=== PATIENT | female | born 1965 | race Caucasian/White ===

== ENCOUNTER → 2017-04-12 08:42 | Outpatient (CLI) | payer BC, SELFPAY ==
--- NOTE | 2017-04-12 09:00 | MM_ITS ---
MM Dig screening mamm BI w/CAD CAD Screening COMPARISON: Digital mammograms and additional views of both breast 03/07/2016 INDICATION: There is no personal or family history of breast cancer. There has been previous biopsy left breast. TECHNIQUE: Standard CC and MLO images were obtained. R2 CAD reviewed. FINDINGS: Scattered fibroglandular densities are seen in both breast on a background of fatty breast parenchyma. There is very minimal post biopsy scarring upper outer quadrant left breast. There is a mole marker right breast. There is no suspicious lesion and there are no suspicious microcalcifications. IMPRESSION: Fibrofatty parenchyma with no suspicious lesion seen BI-RADS Category: 2 Benign Finding(s) RECOMMENDED FOLLOW-UP: 1YR - 1 YEAR FOLLOW-UP (A letter has been sent to the patient regarding results of the study.)
== END ==
PROVIDERS: PCP Nurse Practitioner Family; Visit Provider Nurse Practitioner Family
DX: Z12.39 Encounter for other screening for malignant neoplasm of breast (principal)
CPT/HCPCS: 77067

== ENCOUNTER 2017-04-12 09:25 | Emergency (ER) | payer BC, SELFPAY ==
[2017-04-12 09:40] VITALS: BP 146/90; PULSE 66; RESP 16; TEMP 36.1; O2SAT 97; BMI 36.9
--- NOTE | 2017-04-12 09:42 | XR_ITS ---
XR shoulder RT min 2V HISTORY: Shoulder pain ITS.REASON: pain ORDERING PHYSICIAN: Penny Costa PATIENT AGE: 51 years COMPARISON: None FINDINGS: No fracture or dislocation. No lytic or blastic change. There is normal mineralization. Osteoarthritic changes with bony hypertrophy noted at the acromioclavicular joint. Unremarkable glenohumeral joint. 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
--- NOTE | 2017-04-12 09:43 | XR_ITS ---
XR humerus RT CLINICAL INDICATION: ITS.REASON: pain ORDERING PHYSICIAN: Penny Costa PATIENT AGE: 51 years COMPARISON: None FINDINGS: No fracture or dislocation. No bony or soft tissue abnormality. IMPRESSION: Negative right humerus
--- NOTE | 2017-04-12 09:49 | HMH.EDUTC ---
[facility] [place] Clinical Impression: Arm pain Qualifiers: Laterality: right Qualified Code(s): M79.601 - Pain in right arm Disposition: Home, Self-Care Condition on Discharge: Good Additional Instructions: Take medication as prescribed Alternate cold compresses and heat on area 20 minutes every two hours *Ice 20 minutes every 2 hours for the first 48 hours after the initial injury followed by moist heat every 20 minutes 3-4 times a day to affected area *Muscle relaxer every 8 hours as needed for muscle spasms but remember, it WILL cause drowsiness You cannot take it and drive, operate machinery or care for small children. *Keep this area active, no movement leads to more stiffness, However take it easy and avoid heavy lifting pushing or pulling If pain continued follow up in clinic on Monday with Eliza Mcfarlane If you notice any temp difference in arm, red streaks, warmth, coldness loss of pulse or color go straight to ER Prescriptions: Etodolac [Etodolac 200mg Cap] 200 mg PO Q6H PRN #20 cap PRN Reason: Moderate Pain Referrals: Nimisha Pfeiffer APRN [Primary Care Provider] - Forms: Work/School Release Time of Disposition: 10:40 Medical Decision Making - Medical Records Medical records reviewed: Yes: I reviewed the patient's medical records. Vital Signs: 04/12/17 09:40 Temperature 97 F L Temperature Source Temporal Artery Scan Pulse Rate [Right] 66 Respiratory Rate 16 Blood Pressure [Right Arm] 146/90 Blood Pressure Mean [Right Arm] 108 Blood Pressure Position [Right Arm] Sitting 02 Sat by Pulse Oximetry 97 Oxygen Delivery Method Room Air Orders (Tests/Meds): ORDERS Category Date Time Status XR humerus RT Stat Exams 04/12/17 09:43 Taken XR shoulder RT min 2V Stat Exams 04/12/17 09:42 Taken - Radiology Data #1 Image(s): Shoulder Image Reviewed: Yes I have reviewed radiologist's interpretation Preliminary Findings: No Fracture Seen Osteoarhtritits with hypertrophy of the Ac joint #2 Image(s): Humerus Image Reviewed: Yes I have reviewed radiologist's interpretation Preliminary Findings: No Fracture Seen - Physician Consults Physician Consulted: Eliza Mcfarlane (Family Physician) Reason -: Pt condition Comment/Response: Spoke with Eliza Mcfarlane/Nimisha Pfeiffer at the clinic informed her of patient complaint at the [facility] and findings of no redness, no swelling, no temp difference and good pulses and cap refill Discussed prescribing Etodolac q6h for pain and having her follow up in the clinic on Monday if no improvement and straight to ER if worsening and she advised to DC home and have her follow up in the clinic on Monday - Francisco J Inquiry Pt receiving controlled substance: No Francisco J was queried for this patient: No [facility] [place] - General Stated complaint: Right arm Pain No accident Mode of Arrival: Ambulatory Source of Information: Patient Limitations: No Limitations Description of Symptoms (Recalled from Triage Doc. by RN): RIGHT ARM PAIN X4 DAYS, PAIN WITH MOVEMENT AND TOUCH, LIFTS DAILY HEENT Symptoms (Recalled from RN notes): No Resp Symptoms (Recalled from RN notes): No Skin Symptoms (Recalled from RN notes): No MS Symptoms (Recalled from RN notes): Yes Functional Status (Recalled from RN notes): N - History of Present Illness Provider Complaint: Patient states that she does alot of lifting at work State that last week her grandson was ill and wanted her to lay with him so she laid her arm straight out and child slept on her arm all night State that about 4 days ago she noticed that the muscle area in her right upper was sore and hurt when she would try to raise her arm and use the muscle State that she had to come in today for a mamogram so she came in to get it checked out - Related Data Previous Rx's Medication Instructions Recorded Etodolac [Etodolac 200mg Cap] 200 mg PO Q6H PRN #20 cap 04/12/17 Allergies Allergy/AdvReac Type Severity Reaction Status Date / Time No
--- NOTE | 2017-04-12 09:57 | ED_ITS ---
[facility] [place] Clinical Impression: Arm pain Qualifiers: Laterality: right Qualified Code(s): M79.601 - Pain in right arm Disposition: Home, Self-Care Condition on Discharge: Good Additional Instructions: Take medication as prescribed Alternate cold compresses and heat on area 20 minutes every two hours *Ice 20 minutes every 2 hours for the first 48 hours after the initial injury followed by moist heat every 20 minutes 3-4 times a day to affected area *Muscle relaxer every 8 hours as needed for muscle spasms but remember, it WILL cause drowsiness You cannot take it and drive, operate machinery or care for small children. *Keep this area active, no movement leads to more stiffness, However take it easy and avoid heavy lifting pushing or pulling If pain continued follow up in clinic on Monday with Eliza Mcfarlane If you notice any temp difference in arm, red streaks, warmth, coldness loss of pulse or color go straight to ER Prescriptions: Etodolac [Etodolac 200mg Cap] 200 mg PO Q6H PRN #20 cap PRN Reason: Moderate Pain Referrals: Nimisha Pfeiffer APRN [Primary Care Provider] - Forms: Work/School Release Time of Disposition: 10:40 Medical Decision Making - Medical Records Medical records reviewed: Yes: I reviewed the patient's medical records. Vital Signs: 04/12/17 09:40 Temperature 97 F L Temperature Source Temporal Artery Scan Pulse Rate [Right] 66 Respiratory Rate 16 Blood Pressure [Right Arm] 146/90 Blood Pressure Mean [Right Arm] 108 Blood Pressure Position [Right Arm] Sitting 02 Sat by Pulse Oximetry 97 Oxygen Delivery Method Room Air Orders (Tests/Meds): ORDERS Category Date Time Status XR humerus RT Stat Exams 04/12/17 09:43 Taken XR shoulder RT min 2V Stat Exams 04/12/17 09:42 Taken - Radiology Data #1 Image(s): Shoulder Image Reviewed: Yes I have reviewed radiologist's interpretation Preliminary Findings: No Fracture Seen Osteoarhtritits with hypertrophy of the Ac joint #2 Image(s): Humerus Image Reviewed: Yes I have reviewed radiologist's interpretation Preliminary Findings: No Fracture Seen - Physician Consults Physician Consulted: Eliza Mcfarlane (Family Physician) Reason -: Pt condition Comment/Response: Spoke with Eliza Mcfarlane/Nimisha Pfeiffer at the clinic informed her of patient complaint at the [facility] and findings of no redness, no swelling, no temp difference and good pulses and cap refill Discussed prescribing Etodolac q6h for pain and having her follow up in the clinic on Monday if no improvement and straight to ER if worsening and she advised to DC home and have her follow up in the clinic on Monday - Francisco J Inquiry Pt receiving controlled substance: No Francisco J was queried for this patient: No [facility] [place] - General Stated complaint: Right arm Pain No accident Mode of Arrival: Ambulatory Source of Information: Patient Limitations: No Limitations Description of Symptoms (Recalled from Triage Doc. by RN): RIGHT ARM PAIN X4 DAYS, PAIN WITH MOVEMENT AND TOUCH, LIFTS DAILY HEENT Symptoms (Recalled from RN notes): No Resp Symptoms (Recalled from RN notes): No Skin Symptoms (Recalled from RN notes): No MS Symptoms (Recalled from RN notes): Yes Functional Status (Recalled from RN notes): N - History of Present Illness Provider Complaint: Patient states that she does alot of lifting at work State that last week her grandson was ill and wanted her to lay with him so
[2017-04-12 10:39] VITALS: BP 122/88; PULSE 88; RESP 18; TEMP 37.1
== END 2017-04-12 10:45 | disposition home or self-care (01) ==
PROVIDERS: Emergency Provider Nurse Practitioner; PCP Nurse Practitioner Family
DX: M79.601 Pain in right arm (principal)
CPT/HCPCS: 73030; 73060; 99202

== ENCOUNTER → 2017-05-11 07:05 | Day surgery (SDC) | payer BC, SELFPAY ==
[2017-05-11] VITALS (11 sets, daily range): BP systolic 110–151; BP diastolic 59–86; PULSE 57–74; RESP 16–20; TEMP 36.6; O2SAT 88–96; BMI 36.3
--- NOTE | 2017-05-11 07:12 | IR_ITS ---
CARDIAC CATHETERIZATION DATE OF CATHETERIZATION:05/11/2017 10:30 AM PROCEDURES: 1. Left heart catheterization 2. Left ventriculogram 3. Selective coronary angiogram 4. Angioplasty to a chronically occluded mid LAD INDICATION FOR TEST: 1. Angina pectoris class III and IV 2. Abnormal stress test 3. Coronary artery disease 4. Chronically occluded mid LAD Informed consent was obtained prior to the procedure. COMPLICATIONS: None ESTIMATED BLOOD LOSS: Less than 10 ml. TECHNIQUE: One percent lidocaine used to anesthetize the right anterior aspect of the wrist. The right radial artery was accessed via the Seldinger technique. A 6 Tu[place] sheath was placed in the right radial artery. 2.5 mg of verapamil, 800 mcg of nitroglycerin and 5000 U Heparin were given through the arterial sheath. The trap catheter was also used to perform left heart catheterization left ventriculogram and selective coronary angiogram. At the end of the diagnostic and additional 6000 units of heparin was administered intravenously giving an ACT out of range. A JL 3.5 guide catheter was used intubate the left main artery and a choice PT floppy wire was used to push through the occluded LAD. A 1.5 x 20 mm balloon was deployed in the mid LAD at the chronic occlusion site at 15 allen. This didn't reduce the stenosis proximally however the distal LAD did not become larger and I was unable to cannulate the small chronically occluded distal LAD. After several attempts I decided to band and the procedure rather than risk a possible perforation. The apparatus was removed the sheath was removed good hemostasis was achieved using TR banding patient transferred the postop holding area in stable condition ANGIOGRAPHIC RESULTS: 1. The left main artery normal 2. The left anterior descending artery is a relatively small caliber vessel and is proximally normal but only 2 mm in diameter. The mid LAD is then bluntly occluded with very scant collaterals distally to the apex. The first diagonal artery is a 2 mm vessel and has a proximal 50-60% stenosis 3. The circumflex artery is a massively large dominant vessel with multiple obtuse marginal arteries. There are mild luminal irregularities with no stenosis greater than 10% in a few the marginal branches 4. The right coronary artery is a small vestigial nondominant vessel and normal 5. The BARR ventriculogram reveals normal 65% 6. The left ventricular end-diastolic pressure 20 mmHg IMPRESSION: 1. Chronically occluded mid LAD with unsuccessful angioplasty of a small caliber vessel 2. Normal ejection fraction 3. Elevated LVEDP PLAN: 1. I would not recommend any further attempt to revascularizing the small LAD. I was told full that with angioplasty the caliber of the vessel would be large enough to accommodate drug-eluting stent however it appears patient has either small vessels or small vessel diffuse vasculopathy. 2. She requires medical management with aggressive antianginal medication 3. Diuretics would also benefit by decreasing LVEDP 4. Dual antiplatelet therapy may also benefit 5. LDL less than 55 6. Weight-loss with aggressive risk factor modification 7. Cardiac rehabilitation
--- NOTE | 2017-05-11 07:12 | NVE_ITS ---
Venous Exam Indications: 782.3 Edema. IMPRESSIONS 1. There is no evidence of significant Reflux in the RLE 2. No evidence of deep or superficial vein thrombosis involving the right lower extremity and left lower extremity History: PMH: Deep vein thrombosis. Risk factors: Obese. Medications: Aspirin, 325 mg PO daily. Complete lower extremity venous duplex evaluation. Doppler flow study including spectral analysis, color and morales scale imaging. Location: Vascular laboratory. Patient status: Outpatient. Tables: Venous flow and imaging: + +-------+ + Location Overall Flow properties + +-------+ + Right common femoral Patent Normal phasicity; spontaneous; normal augmentation; compressible; reflux + +-------+ + Right saphenofemoral junction Patent Compressible + +-------+ + Right profunda femoral Patent Compressible + +-------+ + Right femoral Patent Normal phasicity; spontaneous; normal augmentation; compressible; reflux + +-------+ + Right greater saphenous Patent Normal phasicity; spontaneous; normal augmentation; compressible + +-------+ + Right popliteal Patent Normal phasicity; spontaneous; normal augmentation; compressible; reflux + +-------+ + Right posterior tibial Patent Compressible + +-------+ + Right peroneal Patent Compressible + +-------+ + Right gastrocnemius Patent Compressible + +-------+ + Right soleal Patent Compressible + +-------+ + Left common femoral Patent Normal phasicity; spontaneous; normal augmentation; compressible + +-------+ + Left saphenofemoral junction Patent Compressible + +-------+ + Left profunda femoral Patent Compressible + +-------+ + Left femoral Patent Normal phasicity; spontaneous; normal augmentation; compressible + +-------+ + Left greater saphenous Patent Normal phasicity; spontaneous;
[2017-05-11 08:23] LABS: Basophils # 0.1 K/mm3 (0-0.2); Basophils % 1.3 % (0.1-2.0); Eosinophils # 0.7 K/mm3 (0.0-0.4); Eosinophils % 8.7 % (0.1-12.0); Hematocrit 47.7 % (37.0-47.0); Hemoglobin 15.2 g/dL (12.2-16.2); Lymphocytes # 2.3 K/mm3 (0.7-4.5); Lymphocytes % 29.8 K/mm3 (10-50); Mean Corpuscular HGB Conc 31.8 g/dL (31.8-35.4); Mean Corpuscular Hemoglobin 28.2 pg (27.0-31.2); Mean Corpuscular Volume 88.6 fl (81-99); Mean Platelet Volume 7.4 fl (7.4-10.4); Monocytes # 0.4 K/mm3 (0.1-1.0); Neutrophils # 4.2 K/mm3 (1.8-7.8); Neutrophils % 55.2 % (37.0-80.0); Platelet Count 233 K/mm3 (142-424); Red Blood Count 5.38 M/mm3 (4.20-5.40); Red Cell Distribution Width 13.6 % (11.5-17.5); White Blood Count 7.7 K/mm3 (4.8-10.8)
[2017-05-11 08:33] LABS: Anion Gap 8.9 mEq/L (5-15); Blood Urea Nitrogen 15 mg/dL (7-18); Carbon Dioxide 31 mmol/L (21.0-32.0); Chloride 103 mmol/L (98-107); Creatinine Clearance Estimated 124 mL/min (0-300); Creatinine,Serum 0.88 mg/dL (0.55-1.02); Estimated Glomerular Filt Rate 67 ml/min (>60); GFR (African American) 82 ML/MIN (>60); Glucose 109 mg/dL (74-106); Potassium 3.9 mmoL/L (3.5-5.1); Sodium 139 mmol/L (136-145)
[2017-05-11 08:58] LABS: HCG Qualitative, Serum Negative (Negative)
[2017-05-11 14:51] LABS: CATHL Activated Clotting Time > 400 SEC (74-125)
== END ==
PROVIDERS: PCP Nurse Practitioner Family; Visit Provider Internal Medicine
DX: I25.118 Atherosclerotic heart disease of native coronary artery with other forms of angina pectoris (principal); R07.9 Chest pain, unspecified; R06.02 Shortness of breath; Z86.718 Personal history of other venous thrombosis and embolism; G47.9 Sleep disorder, unspecified; I25.83 Coronary atherosclerosis due to lipid rich plaque; I25.82 Chronic total occlusion of coronary artery
CPT/HCPCS: 80048; 84703; 85025; 85347; 92920; 93458; 93970; 99152; 99153; C1725; C1769; J1644; Q9967

== ENCOUNTER → 2018-10-25 16:15 | Outpatient (CLI) | payer BC, SELFPAY ==
--- NOTE | 2018-10-25 16:27 | MM_ITS ---
PROCEDURE: MM DIG SCREENING MAMM BI W/CAD CLINICAL INDICATION: SCREENING There is no personal or family history of breast cancer COMPARISON: DMDBAV DIG MAMM-DX AG W/AVWS W/CAD from 03/07/2016 [facility] MM Dig screening mamm BI w/CAD from 04/12/2017 TECHNIQUE: Standard CC and MLO images were obtained. R2 CAD reviewed. FINDINGS: The breasts are composed primarily of fat with scattered fibroglandular densities throughout. There is a mole marker right breast. There is a stable benign-appearing nodular density left breast. There is no suspicious lesion and no suspicious microcalcifications. IMPRESSION: Fibrofatty parenchyma with no suspicious lesions seen BI-RAD Category: 2 Benign Finding(s) FOLLOW-UP: 1YR 1 Year Follow-up (A letter has been sent to the patient regarding results of the study.) Dictated by: Dr. Ankit Milton MD 10/31/2018 08:[address] Ankit Milton MD in [place] 10/31/2018 08:21
== END ==
PROVIDERS: PCP Nurse Practitioner Family; Visit Provider Nurse Practitioner Family
DX: Z12.31 Encounter for screening mammogram for malignant neoplasm of breast (principal)
CPT/HCPCS: 77067

== ENCOUNTER → 2019-10-29 17:09 | Outpatient (CLI) | payer BC, SELFPAY ==
--- NOTE | 2019-10-29 17:12 | MM_ITS ---
PROCEDURE: MM DIG SCREENING MAMM BI W/CAD Digital Breast Tomosynthesis Included CLINICAL INDICATION: SCREENING There is no personal or family history of breast cancer. There has been a previous biopsy left breast for benign disease. COMPARISON: MG DMDBAV DIG MAMM-DX AG W/AVWS W/CAD from 03/07/2016 MG [facility] MM Dig screening mamm BI w/CAD from 04/12/2017 MG MM DIG SCREENING MAMM BI W/CAD from 10/25/2018 TECHNIQUE: Standard CC and MLO images and 3D Tomosynthesis was obtained. R2 CAD reviewed. FINDINGS: Scattered fibroglandular densities are seen throughout both breasts. There are couple of benign-appearing microcalcifications right breast. There is a stable slightly lobulated benign-appearing density upper-outer quadrant right breast likely a bilobed cyst. There is no new or suspicious lesion in either breast and no suspicious microcalcifications. IMPRESSION: Fibrofatty parenchyma with no suspicious lesions seen BI-RAD Category: 2 Benign Finding(s) FOLLOW-UP: 1YR 1 Year Follow-up (A letter has been sent to the patient regarding results of the study.) Dictated by: Dr. Ankit Milton MD 11/01/2019 09:14 Dr. Ankit Milton MD in [place] 11/01/2019 09:14
== END ==
PROVIDERS: PCP Nurse Practitioner Family; Visit Provider Nurse Practitioner Family
DX: Z12.31 Encounter for screening mammogram for malignant neoplasm of breast (principal)
CPT/HCPCS: 77063; 77067

== ENCOUNTER → 2020-12-11 15:49 | Outpatient (CLI) | payer BC, SELFPAY ==
--- NOTE | 2020-12-11 15:51 | MM_ITS ---
PROCEDURE INFORMATION: Exam: MG Bilateral Screening 3D Mammography Exam date and time: 12/11/2020 3:51 PM Age: 55 years old Clinical indication: Encounter for screening mammogram for malignant neoplasm of breast TECHNIQUE: Imaging protocol: Bilateral screening tomosynthesis and 2D mammography including computer-aided detection (CAD) when performed. COMPARISON: 1. MG MM DIG SCREENING MAMM BI W/CAD 10/29/2019 5:13 PM 2. MG MM DIG SCREENING MAMM BI W/CAD 10/25/2018 4:36 PM 3. MG [facility] MM Dig screening mamm BI w/CAD 04/12/2017 9:11 AM FINDINGS: MAMMOGRAPHY: Breast composition: There are scattered areas of fibroglandular density. Mass: No suspicious masses. Architectural distortion: No suspicious distortion. Calcifications: No suspicious calcifications. Asymmetric density: None. Skin thickening: None. Axillary adenopathy: None. IMPRESSION: No mammographic evidence of malignancy. Annual screening is recommended unless otherwise clinically indicated. ASSESSMENT: BI-RADS Category 1: Negative
== END ==
PROVIDERS: PCP Nurse Practitioner Family; Visit Provider Nurse Practitioner Family
DX: Z12.31 Encounter for screening mammogram for malignant neoplasm of breast (principal)
CPT/HCPCS: 77063; 77067

== ENCOUNTER → 2022-08-31 13:24 | Outpatient (CLI) | payer BC, MEDICAID, SELFPAY ==
--- NOTE | 2022-08-31 13:27 | MM_ITS ---
PROCEDURE INFORMATION: Exam: MG Bilateral Screening 3D Mammography Exam date and time: 08/31/2022 1:19 PM Age: 56 years old Clinical indication: Screening. Her maternal cousin had breast cancer. TECHNIQUE: Imaging protocol: Bilateral Screening tomosynthesis and 2D mammography including computer-aided detection (CAD) when performed. COMPARISON: 1. MG MM DIG SCREENING MAMM BI W/CAD 12/11/2020 3:48 PM 2. MG MM DIG SCREENING MAMM BI W/CAD 10/29/2019 5:13 PM 3. MG MM DIG SCREENING MAMM BI W/CAD 10/25/2018 4:36 PM 4. MG [facility] MM Dig screening mamm BI w/CAD 04/12/2017 9:11 AM FINDINGS: MAMMOGRAPHY: Breast composition: There are scattered areas of fibroglandular density. Mass: No suspicious mass. Architectural distortion: None. Calcifications: No suspicious calcifications. Asymmetric density: None. Skin thickening: None. Axillary adenopathy: None. IMPRESSION: No mammographic evidence of malignancy. Annual screening is recommended unless otherwise clinically indicated. ASSESSMENT: BI-RADS Category 1: Negative
== END ==
PROVIDERS: PCP Nurse Practitioner Family; Visit Provider Nurse Practitioner Family
DX: Z12.31 Encounter for screening mammogram for malignant neoplasm of breast (principal)
CPT/HCPCS: 77063; 77067

== ENCOUNTER 2023-06-07 15:03 | Outpatient (CLI) | payer BC, MEDICAID, SELFPAY ==
--- NOTE | 2023-06-07 15:06 | US_ITS ---
PROCEDURE: US TRANSVAGINAL CLINICAL INDICATION: Post Menopausal Bleeding COMPARISON: No exams were available for comparison FINDINGS: Transvaginal and transabdominal sonographic images of the pelvis were obtained. UTERUS: 9.3cm x 5.1cmx 4.0cm anteverted with a combined endometrial thickness of 14mm. The endometrium appears multi-cystic in appearance. LEFT OVARY: 2.0cmx1.2cmx1.3cm with a volume of 1.6ml. Appears atrophic. RIGHT OVARY: 2.6 cmx 2.2cmx1.4cm with a volume of 4.1ml. Appears atrophic. Both ovaries are seen and appear atrophic. Doppler flow to both ovaries are seen. There is no fluid in the cul-de-sac. IMPRESSION: 1. Anteverted, bulky uterus. 2. The endometrium is markedly thickened and multi-cystic appearing. Concerning for hyperplasia/endometrial carcinoma. Suggest endometrial sampling. 3. Both ovaries are seen and appear atrophic. The right ovary is seen transabdominally. 4. No fluid in the cul-de-sac. Dictated by: Christopher Guadarrama MD 06/08/2023 07:22 Christopher Guadarrama MD in OV 06/08/2023 07:22
== END 2023-06-07 23:59 | disposition home or self-care (01) ==
LOC: RAD 15:04
PROVIDERS: PCP Nurse Practitioner Family; Visit Provider Obstetrics & Gynecology
DX: N95.0 Postmenopausal bleeding (principal)
CPT/HCPCS: 76830

== ENCOUNTER 2024-09-24 09:50 | Outpatient (CLI) | payer MEDICARE, SELFPAY ==
--- OUTSIDE RECORDS SUMMARY | 2017-06-26 04:30 | XMS_ITS | Continuity of Care Document ---
Author Organization [facility] Address [address] [place] [address] Phone Care Team Providers Care Medical Assistant Ob Gyn Name Role Phone Feroz Farias MD Unavailable Unavailable Allergies, Adverse Reactions, Alerts Substance Reaction Status Criticality No Known allergies Medications Medication Instructions Dosage Effective Dates (start - stop) Status Comments Pataday 0.2% Ophthalmic DROPS 1 gtt qdaily OU - No Longer Active Pharmacist, please use coupon ID# [id number]. RxGrp # [id number]. RxPCN: Segundo. RxBin: [id number]. DAW1 Ambien 5 mg Tab As Directed - No Lo nger Active Procedures Procedure Date Ophth Serv Med Exam Comp New Est. Patient - Intermediate Service Est. Patient - Intermediate Service Est. Patient - Level II Est. Patient - InermidateService 2007 Advance Directives Directive Yes / No Effective Date File Name Resuscitation Not Answered N/A N/A Life Support Not Answered N/A N/A Intubation Not Answered N/A N/A Antibiotics Not Answered N/A N/A IV Fluid Support Not Answered N/A N/A Tube Feed Not Answered N/A N/A Other Directive N/A N/A WARNING:The information contained in this section is historical and is provided for information only and does not constitute a legal document or any assurance that the information is still accurate. Please verify the information with the olson of the legal document before using it for clinical purposes. Encounters Encounter Description Practice Location Reason(s) For Visit Diagnoses Date Provider Providers Copied on Encounter [facility], [address] [place] [address], [id number], [place] tel:[phone] [facility] Dry eye syndrome of bilateral lacrimal glands 8 Jarrett Redman. [address] [place] [address], [id number], [place]. tel:[phone] Referring Provider: Feroz Olsen, [address] [place] [address], [id number] . tel:[phone] [facility], [address] [place] [address], [id number], [place] tel:[phone] [facility] 1 No Information 3 Jarrett Redman. [address] [place] [address], [id number], [place]. tel:[phone] Referring Provider: Feroz Olsen, [address] [place] [address], [id number] . tel:[phone] [facility], [address] [place] [address], [id number], [place] tel:[phone] [facility] 1 Regular Astigmatism 3 Jarrett Redman. [address] [place] [address], [id number], [place]. tel:[phone] Referring Provider: Feroz Olsen, [address] [place] [address], [id number] . tel:[phone] [facility], [address] [place] [address], [id number], [place] tel:[phone] [facility] 1 No Information 1 Jarrett Redman. [address] [place] [address], [id number], [place]. tel:[phone] Referring Provider: Feroz Olsen, [address] [place] [address], [place], [address] . tel:[phone] Est. Patient - Level II [facility], [address] [place] [address], [id number], tel:[phone] [facility] 1 No Information 3200 8 Jarrett Redman. [address] [place] [address], [id number], [place]. tel:[phone] Referring Provider: Feroz Olsen, [address] [place] [address], [place], [address] . tel:[phone] [facility], [address] [place] [address], [id number], [place] tel:[phone] [facility] Contact Lens No Information May-2 1200 8 No Information [facility], [address] [place] [address], [id number], [place] tel:[phone] [facility] 1 No Information May-0 9200 8 Jarrett Redman. [address] [place] [address], [id number], [place]. tel:[phone] Referring Provider: Feroz Olsen, [address] [place] [address], [id number] . tel:[phone] Family History Family Member Type Diagnosis Age At Onset No Information Payers Payer name Insurance type Covered democrat ID Latia taytristan(s) [facility] [id number] CI [id number] Social History Type Description Quantity Date Captured Comments Alcohol Use Details Caffeine Use Details Unknown Tobacco Use Status Never smoked tobacco 2017 Smoking Status Never smoker Sex Female Chief Complaint And Reason For Visit No Information Reason For Referral Reason For Referral No Information History Of Present Illness Encounter Date Complaint History Of Prese nt Illness No Information Functional Status Date Functional Assessmen t No Information Medications Administered Medication Instructions Dosage Effective Dates (start - stop) Status Comments No Drug Therapy Prescribed Instructions Date Instruction Additional Joshr rosaura Education Material Provided 372.14 Conjunctivitis, Allergic OU 373.02 Blepharitis OD angular Assessments Type Assessment Date No Information Patient Care Teams Name Effective Dates (start - stop) Status Members No Information
--- NOTE | 2024-09-24 09:52 | MM_ITS ---
PROCEDURE INFORMATION: Exam: MG Bilateral Screening 3D Mammography Exam date and time: 09/24/2024 10:06 AM Age: 59 years old Clinical indication: Screening examination TECHNIQUE: Imaging protocol: Bilateral Screening tomosynthesis and 2D mammography including computer-aided detection (CAD) when performed. COMPARISON: 1. MG MM DIG SCREENING MAMM BI W/CAD 08/31/2022 1:19 PM 2. MG MM DIG SCREENING MAMM BI W/CAD 12/11/2020 3:48 PM FINDINGS: MAMMOGRAPHY: Breast composition: There are scattered areas of fibroglandular density. Mass: None. Architectural distortion: None. Calcifications: No suspicious calcifications. Asymmetric density: None. Skin thickening: None. Axillary adenopathy: None. IMPRESSION: No mammographic evidence of malignancy. Annual screening is recommended unless otherwise clinically indicated. ASSESSMENT: BI-RADS Category 1: Negative.
--- OUTSIDE RECORDS SUMMARY | 2024-09-24 10:07 | XMS_ITS | Encounter Summary ---
Author Organization [facility] Address [address] [place] [address] Care Team Providers Care Vocational Rehabilitation Technician Name Role Phone Eliza Mcfarlane APRN Primary Care Provider [phone] Reason for Visit * Reason Onset Date Comments Appointment 09/09/2024 PATIENT CALLED T O SAME DAY CX. INFORMED THEM OF THE SAME DAY CX POLICY AND OFFERED TO RS APPT SAME DAY CX 1 OF 3 Encounter Details Date Type Department Care Team (Late st Contact Info) Description 09/09/2024 Telephone [facility] PULMONARY & CRITICAL CARE MEDICINE [address] [place] [address] Juan Antonio Poole RegSched Rep Appointment (PATIENT CALLED TO SAME DAY CX. INFORMED THEM OF THE SAME DAY CX POLICY AND OFFERED TO RS APPT/ /SAME DAY CX 1 OF 3) Social History Tobacco Use Types Packs/Day Years Used Date Smoking Tobacco: Every Day Cigarettes 2 42.6 Started: 1982 Passive Smoke Exposure: Current Smokeless Tobacco: Never Alcohol Use Standard Drinks/Week Comments No 0 (1 standard drink = 0.6 oz pur e alcohol) AUDIT-C Answer Date Recorded Q1: How often do you have a drink containing alcohol? Never 07/26/2023 Q2: How many drinks containi ng alcohol do you have on a typical day when you are drinking? Patient does not drink Q3: How often do you have si x or more drinks on one occasion? Never 07/26/2023 Abuse Screen Answer Date Recorded Feels Unsafe at Home or Work/School no 07/26/2023 Feels Threatened by Someone no 07/14 Does Anyone Try to Keep You From Having Contact with Others or Doing Things Outside Your Home? no 07/26/2023 Physical Signs of Abuse Present no 07/26/2023 Housing Stability Answer Date Recorded Current Living Arrangements home 07/14 Potentially Unsafe Housing Conditions Not on catrachita e 07/26/2023 Disabilities Answer Date Recorded Difficulty Concentrating, Remembering or Making Decisions no 07/26/2023 Difficulty Managing Errands Independently no 07/26/2023 Comments No Sex and Gender Information Value Date Recorded Sex Assigned at Not on file Legal Sex Female 11:21 AM EDT Gender Identity Not on file Sexual Orientation Not on file documented as of this encounter Miscellaneous Notes * Telephone Encounter - Juan Antonio Poole RegSched Rep - 09/09/2024 8:28 AM EDT PATIENT CALLED TO SAME DAY CX. INFORMED THEM OF THE SAME DAY CX POLICY AND OFFERED TO RS APPT SAME DAY CX 1 OF 3 documented in this encounter Plan of Treatment Upcoming Encounters Date Type Department Care Team (Late st Contact Info) Description 09/26/2024 10:00 AM EDT Office Visit [facility] PULMONARY & CRITICAL CARE MEDICINE [address] [facility] [address] Jennifer Hernandez APRN [address] [place] [address] 06/11/2025 11:30 AM EDT Office Visit [facility] CARDIOLOGY [address] [facility] [address] [place] [id number] Diogo Tesfaye PA [address] [facility] [address] [facility] [address] [place] [address] documented as of this encounter Visit Diagnoses Not on filedocumented in this encounter Care Teams Vocational Rehabilitation Technician Relationship Specialty Start Date End Date Eliza Mcfarlane APRN PCP - General Nurse Practitioner 05/24/17 documented as of this encounter
--- OUTSIDE RECORDS SUMMARY | 2024-09-24 10:07 | XMS_ITS | Clinical Summary ---
Author Organization [facility] Address [address] [place] [address] Care Team Providers Care Molder Vacuum Name Role Phone Eliza Mcfarlane APRN Primary Care Provider [phone] Allergies Active Allergy Reactions Criticality Noted Date Comments Bupropion Anxiety Low 05/24/2022 Medications atorvastatin (LIPITOR) 40 MG tablet Take 1 tablet by mouth Every Night. Active escitalopram (LEXAPRO) 20 MG tablet Take 1 tablet by mouth Every Night. Active albuterol sulfate HFA 108 (90 Base) MCG/ACT inhaler Inhale 2 puffs Every 6 (Six) Hours As Needed for Shortness of Air or Wheezing. 1 Active levothyroxine (SYNTHROID, LEVOTHROID) 100 MCG tablet Take 1 tablet by mouth Daily. 1 Active furosemide (LASIX) 20 MG tablet Take 1 tablet by mouth Daily. 2 Active metFORMIN (GLUCOPHAGE) 500 MG tablet Take 1 tablet by mouth Every Evening. 2 Active ipratropium-alb uterol (DUO-NEB) 0.5-2.5 mg/3 ml nebulizer Take 3 mL by nebulization Daily As Needed for Shortness of Air or Wheezing. 3 Active pantoprazole (PROTONIX) 40 MG EC tablet Take 1 tablet by mouth Every Night. Active rOPINIRole (REQUIP) 0.25 MG tablet Take 1 tablet by mouth 2 (Two) Times a Day. Active montelukast (SINGULAIR) 10 MG tablet Take 1 tablet every day by mouth at bedtime. 3 Active O2 (OXYGEN) Inhale 3 L/min 1 (One) Time. With exertion and at HS Active aspirin 81 MG EC tablet Take 1 tablet by mouth Daily. 81 tablet 6 3 Active vitamin D (ERGOCALCIFEROL ) 1.25 MG (48487 UT) capsule capsule Take 1 capsule by mouth Every 7 (Seven) Days. 4 Active famotidine (PEPCID) 40 MG tablet Take 1 tablet by mouth 2 (Two) Times a Day. 4 Active Blood Glucose Monitoring Suppl (Accu-Chek Guide) w/Device kit use as directed daily to test blood sugars 4 Active Accu-Chek Softclix Lancets lancets use to test blood sugar levels daily 4 Active loratadine (CLARITIN) 10 MG tablet TAKE ONE TABLET BY MOUTH DAILY NEEDED FOR ALLERGY 5 Active Accu-Chek Guide Test test strip 1 each by Other route Daily. 4 Active Dulera 200-5 MCG/ACT inhaler Inhale 2 puffs 2 (Two) Times a Day. 4 Active tiotropium bromide monohydrate (Spiriva Respimat) 2.5 MCG/ACT aerosol solution inhaler Inhale 2 puffs Daily. 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 Escobar (04/2018): Chronically occluded mid LAD with unsuccessful angioplasty of small caliber vessel. Normal LVEF abnormal GXT only stress test Cath film review by JULIAN: LV gram nondiagnostic, right coronary angiogram nondiagnostic, left coronary tree is difficult to interpret, distal LAD occlusion is not convincing on these films GXT MPS (06/20/2017): No ischemia Echocardiogram (12/31/2020): LVEF 56-60%. No significant valvular disease. RVSP 20 mmHg Echo (07/06/2023): LVEF= 52.1%. Trace MR. RVSP less than 35 mmHg MPS (07/20/2023): Ischemia in the distal anterior wall and apex. Essential hypertension 06/02/2021 Hyperlipidemia LDL goal <70 06/02/2021 Encounters Date Type Department Care Team Description 09/09/2024 Telephone [facility] PULMONARY & CRITICAL CARE MEDICINE [address] [place] [address] Juan Antonio Poole RegSched Rep Appointment (PATIENT CALLED TO SAME DAY CX. INFORMED THEM OF THE SAME DAY CX POLICY AND OFFERED TO RS APPT/ /SAME DAY CX 1 OF 3) from Last 3 Months Immunizations Immunization Administration Dates Next Due 31-influenza Vac Quardvalent Preservativ 019,12/16/2017 Arexvy (RSV, Adults 60+ yrs) 09/20/2023 Fluzone >6mos 12/26/2023 Fluzone (or Fluarix & Flulaval for VFC) >6mos ,11/12/2019 Influenza, Unspecified 01/07/2019,12/16/2017 MMR 07/20/2005 Pneumococcal Conjugate 20-Valent (PCV20) 023 Pneumococcal Polysaccharide (PPSV23) 11/07/2022 Tdap 09/21/2007 Family History Medical History Relation Name Comments No Known Problems Brother 2 No Known Problems Brother 3 No Known Problems Brother 4 No Known Problems Brother 5 No Known Problems Brother 6 No Known Problems Father Diabetes Mother Nkechi Relation Name Status Comments Brother 1 OD'd on drugs Brother 2 Alive Brother 3 Alive Brother 4 Alive Brother 5 Alive Brother 6 Alive Father Mother Nkechi Social History Tobacco Use Types Packs/Day Years Used Date Smoking Tobacco: Every Day Cigarettes 2 42.6 Started: 1982 Passive Smoke Exposure: Current Smokeless Tobacco: Never Tobacco Cessation:Ready to Q uit: Not Asked; Counseling Given: Not Answered Alcohol Use Standard Drinks/Week Comments No 0 [...] on file Sexual Orientation Not on file Last Filed Vital Signs Vital Sign Reading Time Taken Comments Blood Pressure 146/78 06/11/2024 11:32 AM EDT Pulse 56 06/11/2024 11:32 AM EDT Temperature 36 C (96.8 F) 03/14/2024 8:55 AM EST Respiratory Rate 16 08/23/2023 11:25 AM EDT Oxygen Saturation 93% 06/11/2024 11:32 AM EDT 3L/min Inhaled Oxygen Concentration - - Weight 98.7 kg (217 lb 9.6 oz) 06/11/2024 11:32 AM EDT Height 172.7 cm (5' 8 ) 06/11/2024 11:32 AM EDT Body Mass Index 33.09 06/11/2024 11:32 AM EDT Plan of Treatment Upcoming Encounters Date Type Department Care Team (Late st Contact Info) Description 09/26/2024 10:00 AM EDT Office Visit [facility] PULMONARY & CRITICAL CARE MEDICINE [address] [place] [address] Jennifer Hernandez APRN [address] [place], [place] [id number] 06/11/2025 11:30 AM EDT Office Visit [facility] CARDIOLOGY [address] [place] [address] Diogo Tesfaye PA [address] [facility] [address] [place] [address] Health Maintenance Due Date Last Done Comments Annual Gynecologic Pelvic an d Breast Exam 1964 PAP SMEAR 1985 MAMMOGRAM 2004 COLOGUARD 2009 COLON CANCER SCREENING 5 YEA R SIGMOIDOSCOPY 2009 COLONOSCOPY [address] CANCER SCREENING 2009 [address] COLONOGRAPHY 2009 FECAL OCCULT BLOOD TEST 2009 FIT Testing (1 year) 2009 ZOSTER VACCINE (1 of 2) 2014 ANNUAL WELLNESS VISIT 05/31/2017 HEPATITIS C SCREENING 05/31/2017 TDAP/TD VACCINES (2 - Td or Tdap) 09/20/2017 008 COVID-19 Vaccine ( - 2023-2 5 season) 2023 LUNG CANCER SCREENING 06/18/2024 06/19/2023 , 06/15/2022, 05/25/2017 LIPID PANEL 07/25/2024 07/26/2023 INFLUENZA VACCINE 11/13/2024 12/26/2023, , 11/12/2019, Additional history exists Pneumococcal Vaccine 50+ Completed 11/07/2022, 05/14 HEMOGLOBIN A1C Discontinued 07/26/2023 Procedures Procedure Name Priority Date/Time Associated Diagnosis Comments HEMOGLOBIN A1C STAT 07/26/2023 7:18 AM EDT LIPID PANEL STAT 07/26/2023 7:[address] CHEST LOW DOSE WO CANCER SCREENING Routine 06/19/2023 1:41 PM EDT Personal history of tobacco use, presenting hazards to health from Last 3 Months or Most Recently Relevant to Health Maintenance Results * (ABNORMAL) Hemoglobin A1c (07/26/2023 7:18 AM EDT) Hemoglobin A1C 5.80(H) 4.80 - 5.60 % 07/26/2023 8:38 AM EDT [facility] Blood Line / Unknown 07/26/2023 7: 18 AM EDT 07/26/2023 7:27 AM EDT [facility] - 07/26/2023 8:38 AM EDT Hemoglobin A1C Ranges: Increased Risk for Diabetes 5.7% to 6.4% Diabetes >= 6.5% Diabetic Goal < 7.0% Radha Redman PA-C LAB BLOOD ORDERABLES Final Re sult [facility]
[address] [place] [address], * (ABNORMAL) Lipid Panel (07/26/2023 7:18 AM EDT) Total Cholesterol 146 0 - 200 mg/dL 07/26/2023 9:05 AM EDT [facility] Triglycerides 130 0 - 150 mg/dL 07/26/2023 9:05 AM EDT [facility] HDL Cholesterol 34(L) 40 - 60 mg/dL 07/26/2023 9:05 AM EDT [facility] LDL Cholesterol 89 0 - 100 mg/dL 07/26/2023 9:05 AM EDT [facility] VLDL Cholesterol 23 5 - 40 mg/dL 07/26/2023 9:05 AM EDT [facility] LDL/HDL Ratio 2.53 07/26/2023 9:05 AM EDT [facility] Blood Line / Unknown 07/26/2023 7: 18 AM EDT 07/26/2023 7:27 AM EDT Narrative [facility] - 07/26/2023 9:05 AM EDT Cholesterol Reference Ranges (U.S. Department of Health and Human Services ATP III Classifications) Desirable <200 mg/dL Borderline High 200-239 mg/dL High Risk >240 mg/dL Triglyceride Reference Ranges (U.S. Department of Health and Human Services ATP III Classifications) Normal <150 mg/dL Borderline High 150-199 mg/dL High 200-499 mg/dL Very High >500 mg/dL HDL Reference Ranges (U.S. Department of Health and Human Services ATP III Classifications) Low <40 mg/dl (major risk factor for CHD) High >60 mg/dl ('negative' risk factor for CHD) LDL Reference Ranges (U.S. Department of Health and Human Services ATP III Classifications) Optimal <100 mg/dL Near Optimal 100-129 mg/dL Borderline High 130-159 mg/dL High 160-189 mg/dL Very High >189 mg/dL Radha Redman PA-C LAB BLOOD ORDERABLES Final Re sult [facility]
[address] [place] [address], * CT Chest Low Dose Cancer Screening WO (06/19/2023 1:41 PM EDT) Anatomical Region Laterality Modality Chest Computed Tomogra phy 06/21/2023 1:45 PM EDT Impressions 06/21/2023 1:51 PM EDT Impression: 1.No evidence of lung cancer. 2.No acute cardiopulmonary process. Recommendation: Continue annual screening with LDCT Lung Rads Assessment: Lung-RADS L1 - Negative, <1% chance of malignancy. Electronically Signed: Janak Kumar MD 06/21/2023 1:51 PM EDT Workstation ID: [id number] Narrative 06/21/2023 1:[address] CHEST LOW DOSE CANCER SCREENING WO Date of Exam: 06/19/2023 1:35 PM EDT Indication: Lung cancer screening, >= 20 pk-yr smoking history (Age >= 50y). Comparison: June 15, 2022 Technique: Low dose CT imaging of the chest was performed without intravenous contrast enhancement. Automated exposure control and iterative reconstruction methods were used. Findings: The central tracheobronchial tree is clear. No pulmonary nodule is identified. The lungs are clear. There is no pleural effusion. The heart size appears normal, with evidence of calcified coronary artery disease. The great vessels are normal in caliber. No abnormally enlarged lymph nodes are identified. Partial evaluation of the upper abdomen demonstrates change of cholecystectomy. No aggressive osseous lesions are identified. Procedure Note Janak Kumar MD - 06/21/2023 CT CHEST LOW DOSE CANCER SCREENING WO Date of Exam: 06/19/2023 1:35 PM EDT Indication: Lung cancer screening, >= 20 pk-yr smoking history (Age >=50y). Comparison: June 15, 2022 Technique: Low dose CT imaging of the chest was performed withoutintravenous contrast enhancement. Automated exposure control anditerative reconstruction methods were used. Findings: The central tracheobronchial tree is clear. No pulmonary nodule isidentified. The lungs are clear. There is no pleural effusion. The heart size appears normal, with evidence of calcified coronary arterydisease. The great vessels are normal in caliber. No abnormally enlargedlymph nodes are identified. Partial evaluation of the upper abdomen demonstrates change ofcholecystectomy. No aggressive osseous lesions are identified. IMPRESSION: Impression: 1.No evidence of lung cancer. 2.No acute cardiopulmonary process. Recommendation: Continue annual screening with LDCT Lung Rads Assessment: Lung-RADS L1 - Negative, <1% chance of malignancy. Electronically Signed: Janak Kumar MD 06/21/2023 1:51 PM EDT Workstation ID: [id number] us Silvana V. Case DO IMG CT ORDERABLES Final Resul t from Last 3 Months or Most Recently Relevant to Health Maintenance Insurance [facility] MEDICARE ADVANTAGE HMO Advance Directives * CPR (Attempt to Resuscitate) (Latest Code Status on File) Date Activated Date Inactivated Comments 07/26/2023 9:31 AM 07/26/2023 5:47 PM Question Answer Comments Code Status (Patient has no pulse and is not breathing): CPR (Attempt to Resuscitate) Medical Interventions (Patie nt has pulse or is breathing): Full Support Level Of Support Discussed With: Patient Care Teams Molder Vacuum Relationship Specialty Start Date End Date Eliza Mcfarlane APRN PCP - General Nurse Practitioner 05/24/17
--- OUTSIDE RECORDS SUMMARY | 2024-09-24 10:07 | XMS_ITS | Clinical Summary ---
Author Organization [facility] Address [address] [place] [address] Care Team Providers Care Winding Operator Name Role Phone Nimisha Pfeiffer APRN Primary Care Provider [phone] Family History Medical History Relation Name Comments Diabetes Mother Hyperlipidemia Mother Glaucoma Other Relation Name Status Comments Mother Other Social History Tobacco Use Types Packs/Day Years Used Date Smoking Tobacco: Every Day Comments Unknown Sex and Gender Information Value Date Recorded Sex Assigned at Not on file Legal Sex Female 8:36 PM EDT Gender Identity Not on file Sexual Orientation Not on file Last Filed Vital Signs Vital Sign Reading Time Taken Comments Blood Pressure - - Pulse - - Temperature - - Respiratory Rate - - Oxygen Saturation - - Inhaled Oxygen Concentration - - Weight 103 kg (227 lb 0.1 oz) 11/09/2015 8:56 AM EDT Height 170.2 cm (5' 7 ) 11/09/2015 8:56 AM EDT Body Mass Index 35.55 11/09/2015 8:56 AM EDT Plan of Treatment Not on file Care Teams Winding Operator Relationship Specialty Start Date End Date Nimisha Pfeiffer APRN [address] [place], [place] [id number] PCP - General 06/26/20
== END 2024-09-24 23:59 | disposition home or self-care (01) ==
LOC: RAD 09:50
PROVIDERS: PCP Nurse Practitioner Family; Visit Provider Nurse Practitioner Family
DX: Z12.31 Encounter for screening mammogram for malignant neoplasm of breast (principal); R92.323 Mammographic fibroglandular density, bilateral breasts
CPT/HCPCS: 77063; 77067